=== PATIENT | male | born 1980 | race Caucasian/White ===

== ENCOUNTER 2021-08-20 13:16 | Emergency (ER) | payer OTHER | END 2021-08-20 17:23 | disposition home or self-care (01) | LOC: ER1 13:16 | DX: S41.112A Laceration without foreign body of left upper arm, initial encounter (principal); S80.211A Abrasion, right knee, initial encounter; V49.9XXA Car occupant (driver) (passenger) injured in unspecified traffic accident, initial encounter | CPT/HCPCS: 12001; 70450; 71045; 72170; 73090; 99284; J2405 ==